=== PATIENT | female | born 1970 | race African-American/Black ===

== ENCOUNTER 2019-04-02 06:57 | Inpatient (IN) | payer MEDICAID ==
[~2019-04-02] VITALS: Ht 172.7 cm; Wt 94.3 kg
[~2019-04-02 06:57] MED LIST: UNKNOWN MEDS
[2019-04-02] MEDS ORDERED: METHYLPREDNISOLONE SOD SUCC 125 MG/2 ML VIAL IV ONE (07:15)
[2019-04-02] MEDS ORDERED: HYDRALAZINE 20MG/ML VIAL IV ONE (07:15)
[2019-04-02] MEDS ORDERED: DIPHENHYDRAMINE 50MG/ML VIAL IV ONE (07:15)
[2019-04-02] MEDS ORDERED: FAMOTIDINE 20MG/2ML VIAL IV ONE (07:15)
[2019-04-02] MEDS ORDERED: NICARDIPINE 40MG/200ML PREMIX 200 ML IV STA (07:56)
[2019-04-02 08:06] LABS: CHLORIDE 94 mEq/L (98-107)
[2019-04-02 08:08] LABS: HEMATOCRIT. 33.7 % (36.0-48.0); HEMOGLOBIN. 11.2 g/dL (12.0-16.0); INR 1.1; MEAN CORPUSCULAR HEMOGLOBIN 29.5 pg (28.0-32.0); MEAN CORPUSCULAR VOLUME 88.8 fL (81.0-99.0); PLATELET 100 x1000/uL (130-400); PROTHROMBIN TIME 10.9 sec (9.6-11.0); RED BLOOD CELL COUNT 3.79 mill/uL (4.2-5.4)
[2019-04-02 09:22] LABS: PLATELET ESTIMATE DECREASED
[2019-04-02] MEDS ORDERED: SODIUM CHLORIDE 0.9% 1,000 ML IV SCH (09:44)
[2019-04-02] MEDS ORDERED: PIPERACILLIN/TAZ 3.375G PREMIX 50 ML IV SCH (09:45)
[2019-04-02] MEDS ORDERED: DIPHENHYDRAMINE 50MG/ML VIAL IV PRN (09:45)
[2019-04-02] MEDS ORDERED: ACETAMINOPHEN 325MG TABLET PO PRN (09:45)
[2019-04-02] MEDS ORDERED: MAGNESIUM/ALUMINUM HYDROXIDE/SIMETHICONE 30ML UDC PO PRN (09:45)
[2019-04-02] MEDS ORDERED: DOCUSATE SODIUM 100MG CAPSULE PO PRN (09:45)
[2019-04-02] MEDS ORDERED: MORPHINE SULFATE 4 MG/ML CPJ (NOT FOR IM USE) IV PRN (09:45)
[2019-04-02] MEDS ORDERED: GUAIFENESIN 200MG/10ML SUGAR FREE UDC PO PRN (09:45)
[2019-04-02] MEDS ORDERED: ONDANSETRON HCL 4MG/2ML INJ IV PRN (09:45)
[2019-04-02] MEDS ORDERED: IPRATROPIUM/ALBUTEROL 0.5-3(2.5)MG/3ML NEB HHN PRN (09:45)
[2019-04-02] MEDS ORDERED: DIPHENHYDRAMINE 50MG/ML VIAL IV SCH (10:00)
[2019-04-02 10:25] LABS: PHOSPHORUS 4.6 mg/dL (2.5-4.9)
[2019-04-02 14:00] VITALS: BP 160/69
[2019-04-02] MEDS ORDERED: FAMOTIDINE 20MG/2ML VIAL IV SCH (14:00)
[2019-04-02] MEDS ORDERED: APIX5TAB MT (14:48)
[2019-04-02] MEDS ORDERED: CINA90TA MT (14:48)
[2019-04-02] MEDS ORDERED: INSU100I28 SQ (14:48)
[2019-04-02] MEDS ORDERED: SUCR500T MT (14:48)
[2019-04-02] MEDS ORDERED: METO25TA6 MT (14:56)
[2019-04-02] MEDS ORDERED: PHEN50TA2 MT (14:56)
[2019-04-02] MEDS ORDERED: BUSP15TA3 MT (14:56)
[2019-04-02] MEDS ORDERED: PRAV40TA58 MT (14:56)
[2019-04-02] MEDS ORDERED: NIFE20CA MT (14:56)
[2019-04-02] MEDS ORDERED: TEMA30CA MT (14:56)
[2019-04-02] MEDS ORDERED: CLON0.2T MT (14:56)
[2019-04-02] MEDS ORDERED: ABIL5 MT (14:56)
[2019-04-02] MEDS ORDERED: LOSA50TA41 MT (14:56)
[2019-04-02] MEDS ORDERED: FOLI-43 MT (14:56)
[2019-04-02] MEDS: PIPERACILLIN/TAZOBACTAM 2.25 G in DEXTROSE 5% WATER 50 ML IV SCH (16:00)
[2019-04-02] MEDS ORDERED: VANCOMYCIN 1,250 MG in DEXT 5% WATER 250 ML IV SCH (16:00)
[2019-04-02 16:03] VITALS: BP 133/59
[2019-04-02] MEDS: METHYLPREDNISOLONE SOD SUCC 125 MG/2 ML VIAL IV SCH ×2 (17:00→23:12)
[2019-04-02] MEDS: DIPHENHYDRAMINE 50MG/ML VIAL IV SCH ×2 (17:01→23:12)
[2019-04-02] MEDS ORDERED: MORPHINE SULFATE 2 MG/ML CPJ (NOT FOR IM USE) IV PRN (17:34)
[2019-04-02] MEDS ORDERED: DEXTROSE 50% WATER 50ML SYRINGE IV PRN (18:30)
[2019-04-02 20:00] VITALS: BP 99/58
[2019-04-02] MEDS: METOPROLOL TARTRATE 50MG TABLET PO SCH (21:00)
[2019-04-02] MEDS: NIFEDIPINE XL 30MG TAB PO SCH (21:00)
[2019-04-02] MEDS: BLOOD SUGAR DIAGNOSTIC STRIP TEST SCH (21:36)
[2019-04-02] MEDS: INSULIN LISPRO 100 UNITS/ML SUBCUT SCH (21:36)
[2019-04-02] MEDS ORDERED: INSULIN GLARGINE UD 100 UNITS/ML SYR SUBCUT SCH (22:00)
[2019-04-03] VITALS: BP 135/52
[2019-04-03] MEDS: PIPERACILLIN/TAZOBACTAM 2.25 G in DEXTROSE 5% WATER 50 ML IV SCH ×3 (00:48→15:51)
[2019-04-03] MEDS: DIPHENHYDRAMINE 50MG/ML VIAL IV SCH ×4 (02:29→20:40)
[2019-04-03 04:00] VITALS: BP 150/57
[2019-04-03] MEDS: METHYLPREDNISOLONE SOD SUCC 125 MG/2 ML VIAL IV SCH (05:05)
[2019-04-03 05:58] LABS: BASOPHILS % 0.7 % (0.0-2.0); EOSINOPHILS % 0.1 % (0.0-5.0); HEMATOCRIT. 33.1 % (36.0-48.0); HEMOGLOBIN. 11.1 g/dL (12.0-16.0); LYMPHOCYTES % 9.4 % (20.0-50.0); MEAN CORPUSCULAR HEMOGLOBIN 29.6 pg (28.0-32.0); MEAN CORPUSCULAR VOLUME 88.7 fL (81.0-99.0); MEAN PLATELET VOLUME 8.8 fl (7.4-10.4); MONOCYTES % 5.8 % (2.0-8.0); PLATELET 120 x1000/uL (130-400); RED BLOOD CELL COUNT 3.73 mill/uL (4.2-5.4); RED CELL DISTRIBUTION WIDTH 13.2 % (11.6-14.6)
[2019-04-03 06:24] LABS: CHLORIDE 94 mEq/L (98-107)
[2019-04-03 06:32] LABS: PHOSPHORUS 6.4 mg/dL (2.5-4.9)
[2019-04-03 06:34] LABS: LDL CHOLESTEROL 77 mg/dL (5-100)
[2019-04-03 06:36] LABS: HDL CHOLESTEROL 99 mg/dL (40-59)
[2019-04-03] MEDS ORDERED: LIDOCAINE HCL 1% 20ML VIAL (Pyxis) INJ ONE (07:10)
[2019-04-03] MEDS ORDERED: SODIUM BICARBONATE 4% (2.4MEQ) 5ML VIAL IV ONE (07:10)
[2019-04-03] MEDS: INSULIN LISPRO 100 UNITS/ML SUBCUT SCH ×4 (07:52→20:42)
[2019-04-03] MEDS: BLOOD SUGAR DIAGNOSTIC STRIP TEST SCH ×4 (07:52→20:42)
[2019-04-03 10:00] VITALS: BP 222/91
[2019-04-03] MEDS ORDERED: VANCOMYCIN 1,250 MG in DEXT 5% WATER 250 ML IV SCH (10:00)
[2019-04-03] MEDS: FAMOTIDINE 20MG/2ML VIAL IV SCH (10:33)
[2019-04-03] MEDS: NIFEDIPINE XL 30MG TAB PO SCH ×2 (10:33→20:40)
[2019-04-03] MEDS: METOPROLOL TARTRATE 50MG TABLET PO SCH ×2 (10:33→20:40)
[2019-04-03 12:00] VITALS: BP 222/91
[2019-04-03] MEDS ORDERED: HEPARIN SODIUM 1,000 UNIT/1ML VIAL IV SCH (13:30)
[2019-04-03] MEDS: CLONIDINE 0.1MG TABLET PO PRN (15:45)
[2019-04-03] MEDS: LANTHANUM CARBONATE 500MG CHEW TABLET PO SCH ×2 (15:46→18:21)
[2019-04-03 16:00] VITALS: BP 151/68
[2019-04-03] MEDS: CINACALCET HCL 60MG TABLET PO SCH (18:21)
[2019-04-03 20:00] VITALS: BP 149/61
[2019-04-03 20:26] LABS: HCG SCREEN NEGATIVE
[2019-04-03] MEDS: MINOXIDIL 2.5MG TABLET PO SCH (20:41)
[2019-04-03] MEDS ORDERED: VANCOMYCIN 1 G PREMIX 200 ML IV SCH (21:00)
[2019-04-03] MEDS ORDERED: INSULIN GLARGINE UD 100 UNITS/ML SYR SUBCUT SCH (22:00)
[2019-04-04] VITALS (8 sets, daily range): BP systolic 136–165; BP diastolic 40–83
[2019-04-04] MEDS: PIPERACILLIN/TAZOBACTAM 2.25 G in DEXTROSE 5% WATER 50 ML IV SCH ×3 (00:52→16:46)
[2019-04-04] MEDS: DIPHENHYDRAMINE 50MG/ML VIAL IV SCH ×4 (00:53→21:09)
[2019-04-04] MEDS: BLOOD SUGAR DIAGNOSTIC STRIP TEST SCH ×4 (05:46→21:10)
[2019-04-04] MEDS: CLONIDINE 0.1MG TABLET PO PRN (05:53)
[2019-04-04 06:07] LABS: BASOPHILS % 1.1 % (0.0-2.0); EOSINOPHILS % 3.5 % (0.0-5.0); HEMATOCRIT. 31.2 % (36.0-48.0); HEMOGLOBIN. 10.4 g/dL (12.0-16.0); LYMPHOCYTES % 26.3 % (20.0-50.0); MEAN CORPUSCULAR HEMOGLOBIN 29.7 pg (28.0-32.0); MEAN CORPUSCULAR VOLUME 88.9 fL (81.0-99.0); MEAN PLATELET VOLUME 9.2 fl (7.4-10.4); MONOCYTES % 13.2 % (2.0-8.0); NEUTROPHILS % 55.9 % (40.0-76.0); PLATELET 106 x1000/uL (130-400); RED BLOOD CELL COUNT 3.51 mill/uL (4.2-5.4); RED CELL DISTRIBUTION WIDTH 13.1 % (11.6-14.6)
[2019-04-04 06:21] LABS: CHLORIDE 96 mEq/L (98-107)
[2019-04-04 06:36] LABS: TOTAL IRON BINDING CAPACITY 136 ug/dL (250-450)
[2019-04-04 06:38] LABS: PHOSPHORUS 5.8 mg/dL (2.5-4.9)
[2019-04-04] MEDS: INSULIN LISPRO 100 UNITS/ML SUBCUT SCH ×4 (08:10→21:27)
[2019-04-04] MEDS: MINOXIDIL 2.5MG TABLET PO SCH ×2 (08:30→21:09)
[2019-04-04] MEDS: LANTHANUM CARBONATE 500MG CHEW TABLET PO SCH ×3 (08:30→18:31)
[2019-04-04] MEDS: NIFEDIPINE XL 30MG TAB PO SCH ×2 (08:30→21:08)
[2019-04-04] MEDS: METOPROLOL TARTRATE 50MG TABLET PO SCH ×2 (08:30→21:08)
[2019-04-04] MEDS: FAMOTIDINE 20MG/2ML VIAL IV SCH (08:30)
[2019-04-04] MEDS ORDERED: METHYLPREDNISOLONE SOD SUCC 125 MG/2 ML VIAL IV SCH (09:00)
[2019-04-04] MEDS ORDERED: IOHEXOL-350 100 ML BOTTLE ONE (11:12)
[2019-04-04] MEDS ORDERED: SUCR500T PO (12:33)
[2019-04-04 13:41] LABS: INR 1.2; PARTIAL THROMBOPLASTIN TIME 27.1 sec (23.4-31.0); PROTHROMBIN TIME 11.8 sec (9.6-11.0)
[2019-04-04] MEDS: CINACALCET HCL 60MG TABLET PO SCH (21:08)
[2019-04-04] MEDS: INSULIN GLARGINE UD 100 UNITS/ML SYR SUBCUT SCH (21:10)
[2019-04-05] VITALS: BP 153/52
[2019-04-05] MEDS: PIPERACILLIN/TAZOBACTAM 2.25 G in DEXTROSE 5% WATER 50 ML IV SCH ×3 (00:37→16:28)
[2019-04-05] MEDS: DIPHENHYDRAMINE 50MG/ML VIAL IV SCH ×4 (02:00→20:56)
[2019-04-05 04:00] VITALS: BP 148/61
[2019-04-05] MEDS: BLOOD SUGAR DIAGNOSTIC STRIP TEST SCH ×4 (06:28→21:02)
[2019-04-05 07:01] LABS: BASOPHILS % 1.8 % (0.0-2.0); EOSINOPHILS % 3.5 % (0.0-5.0); HEMATOCRIT. 32.4 % (36.0-48.0); HEMOGLOBIN. 10.9 g/dL (12.0-16.0); MEAN CORPUSCULAR HEMOGLOBIN 29.8 pg (28.0-32.0); MEAN CORPUSCULAR VOLUME 88.7 fL (81.0-99.0); MEAN PLATELET VOLUME 9.1 fl (7.4-10.4); MONOCYTES % 10.9 % (2.0-8.0); NEUTROPHILS % 61.8 % (40.0-76.0); PLATELET 133 x1000/uL (130-400); RED BLOOD CELL COUNT 3.66 mill/uL (4.2-5.4); RED CELL DISTRIBUTION WIDTH 12.7 % (11.6-14.6)
[2019-04-05 08:00] VITALS: BP 153/46
[2019-04-05] MEDS: NIFEDIPINE XL 30MG TAB PO SCH ×2 (08:10→20:56)
[2019-04-05] MEDS: MINOXIDIL 2.5MG TABLET PO SCH ×2 (08:10→20:57)
[2019-04-05] MEDS: LANTHANUM CARBONATE 500MG CHEW TABLET PO SCH ×3 (08:10→18:16)
[2019-04-05] MEDS: INSULIN LISPRO 100 UNITS/ML SUBCUT SCH ×4 (08:10→21:00)
[2019-04-05] MEDS: METOPROLOL TARTRATE 50MG TABLET PO SCH ×2 (08:10→20:57)
[2019-04-05] MEDS: FAMOTIDINE 20MG/2ML VIAL IV SCH (08:11)
[2019-04-05] MEDS ORDERED: IOHEXOL-350 100 ML BOTTLE ONE (11:12)
[2019-04-05] MEDS ORDERED: LIDOCAINE HCL 1% 20ML VIAL (Pyxis) INJ ONE (11:32)
[2019-04-05] MEDS ORDERED: SODIUM BICARBONATE 4% (2.4MEQ) 5ML VIAL IV ONE (11:33)
[2019-04-05 12:00] VITALS: BP 155/52
[2019-04-05 16:00] VITALS: BP 153/45
[2019-04-05] MEDS: CINACALCET HCL 60MG TABLET PO SCH (18:16)
[2019-04-05 20:00] VITALS: BP 176/57
[2019-04-05] MEDS: INSULIN GLARGINE UD 100 UNITS/ML SYR SUBCUT SCH (22:20)
[2019-04-06] VITALS (7 sets, daily range): BP systolic 119–186; BP diastolic 38–83
[2019-04-06] MEDS: PIPERACILLIN/TAZOBACTAM 2.25 G in DEXTROSE 5% WATER 50 ML IV SCH ×3 (01:04→15:35)
[2019-04-06] MEDS: DIPHENHYDRAMINE 50MG/ML VIAL IV SCH ×4 (01:07→20:53)
[2019-04-06] MEDS: CLONIDINE 0.1MG TABLET PO PRN ×2 (01:33→18:22)
[2019-04-06 04:12] LABS: HIV SCREEN 4G Non Reactive (Non Reactive)
[2019-04-06 06:45] LABS: BASOPHILS % 1.3 % (0.0-2.0); EOSINOPHILS % 7.7 % (0.0-5.0); HEMATOCRIT. 30.5 % (36.0-48.0); LYMPHOCYTES % 18.2 % (20.0-50.0); MEAN CORPUSCULAR HEMOGLOBIN 29.1 pg (28.0-32.0); MEAN PLATELET VOLUME 8.7 fl (7.4-10.4); MONOCYTES % 14.9 % (2.0-8.0); NEUTROPHILS % 57.9 % (40.0-76.0); PLATELET 145 x1000/uL (130-400); RED BLOOD CELL COUNT 3.43 mill/uL (4.2-5.4)
[2019-04-06] MEDS: BLOOD SUGAR DIAGNOSTIC STRIP TEST SCH ×4 (07:08→21:00)
[2019-04-06 07:52] LABS: PHOSPHORUS 8.7 mg/dL (2.5-4.9)
[2019-04-06] MEDS: INSULIN LISPRO 100 UNITS/ML SUBCUT SCH ×4 (08:10→22:34)
[2019-04-06] MEDS: METOPROLOL TARTRATE 50MG TABLET PO SCH ×3 (08:45→22:27)
[2019-04-06] MEDS: MINOXIDIL 2.5MG TABLET PO SCH ×2 (08:46→22:28)
[2019-04-06] MEDS: NIFEDIPINE XL 30MG TAB PO SCH ×2 (08:47→22:27)
[2019-04-06] MEDS: LANTHANUM CARBONATE 500MG CHEW TABLET PO SCH ×3 (08:48→18:08)
[2019-04-06] MEDS: FAMOTIDINE 20MG/2ML VIAL IV SCH (12:57)
[2019-04-06] MEDS: CINACALCET HCL 60MG TABLET PO SCH (18:10)
[2019-04-06] MEDS ORDERED: IOHEXOL-350 100 ML BOTTLE ONE (19:41)
[2019-04-06] MEDS: INSULIN GLARGINE UD 100 UNITS/ML SYR SUBCUT SCH (22:36)
[2019-04-07] VITALS: BP 136/39
[2019-04-07] MEDS: PIPERACILLIN/TAZOBACTAM 2.25 G in DEXTROSE 5% WATER 50 ML IV SCH ×2 (00:11→08:32)
[2019-04-07] MEDS: DIPHENHYDRAMINE 50MG/ML VIAL IV SCH ×4 (02:00→19:51)
[2019-04-07 04:00] VITALS: BP 118/37
[2019-04-07] MEDS: INSULIN LISPRO 100 UNITS/ML SUBCUT SCH ×4 (06:54→21:00)
[2019-04-07] MEDS: BLOOD SUGAR DIAGNOSTIC STRIP TEST SCH ×4 (06:54→21:25)
[2019-04-07 08:00] VITALS: BP 149/51
[2019-04-07] MEDS: LANTHANUM CARBONATE 500MG CHEW TABLET PO SCH ×3 (08:32→18:10)
[2019-04-07] MEDS: FAMOTIDINE 20MG/2ML VIAL IV SCH (08:32)
[2019-04-07] MEDS: MINOXIDIL 2.5MG TABLET PO SCH ×2 (08:35→21:00)
[2019-04-07] MEDS: METOPROLOL TARTRATE 50MG TABLET PO SCH ×2 (08:40→21:00)
[2019-04-07] MEDS: NIFEDIPINE XL 30MG TAB PO SCH ×2 (08:40→21:00)
[2019-04-07 10:23] LABS: BASOPHILS % 1.4 % (0.0-2.0); HEMATOCRIT. 31.1 % (36.0-48.0); HEMOGLOBIN. 10.3 g/dL (12.0-16.0); LYMPHOCYTES % 18.7 % (20.0-50.0); MEAN CORPUSCULAR HEMOGLOBIN 29.7 pg (28.0-32.0); MEAN CORPUSCULAR VOLUME 89.4 fL (81.0-99.0); MEAN PLATELET VOLUME 8.3 fl (7.4-10.4); MONOCYTES % 14.5 % (2.0-8.0); NEUTROPHILS % 57.4 % (40.0-76.0); PLATELET 145 x1000/uL (130-400); RED BLOOD CELL COUNT 3.48 mill/uL (4.2-5.4)
[2019-04-07 10:36] LABS: PHOSPHORUS 7.8 mg/dL (2.5-4.9)
[2019-04-07 12:00] VITALS: BP 155/39
[2019-04-07 16:00] VITALS: BP 172/31
[2019-04-07] MEDS: CINACALCET HCL 60MG TABLET PO SCH (18:27)
[2019-04-07 20:00] VITALS: BP 133/38
[2019-04-07] MEDS: INSULIN GLARGINE UD 100 UNITS/ML SYR SUBCUT SCH (22:00)
[2019-04-08] VITALS: BP 137/34
[2019-04-08] MEDS: DIPHENHYDRAMINE 50MG/ML VIAL IV SCH ×4 (03:01→20:39)
[2019-04-08 04:00] VITALS: BP 126/41
[2019-04-08] MEDS: BLOOD SUGAR DIAGNOSTIC STRIP TEST SCH ×4 (06:36→20:40)
[2019-04-08 06:40] LABS: BASOPHILS % 2.3 % (0.0-2.0); EOSINOPHILS % 9.3 % (0.0-5.0); HEMATOCRIT. 31.4 % (36.0-48.0); HEMOGLOBIN. 10.4 g/dL (12.0-16.0); MEAN CORPUSCULAR HEMOGLOBIN 29.4 pg (28.0-32.0); MEAN PLATELET VOLUME 8.5 fl (7.4-10.4); MONOCYTES % 13.4 % (2.0-8.0); PLATELET 139 x1000/uL (130-400); RED BLOOD CELL COUNT 3.52 mill/uL (4.2-5.4); RED CELL DISTRIBUTION WIDTH 12.8 % (11.6-14.6)
[2019-04-08 06:45] LABS: PHOSPHORUS 7.1 mg/dL (2.5-4.9)
[2019-04-08 08:00] VITALS: BP 154/37
[2019-04-08] MEDS: INSULIN LISPRO 100 UNITS/ML SUBCUT SCH ×4 (08:10→20:44)
[2019-04-08] MEDS: METOPROLOL TARTRATE 50MG TABLET PO SCH ×2 (09:24→20:40)
[2019-04-08] MEDS: LANTHANUM CARBONATE 500MG CHEW TABLET PO SCH ×3 (09:24→18:04)
[2019-04-08] MEDS: MINOXIDIL 2.5MG TABLET PO SCH ×2 (09:24→20:39)
[2019-04-08] MEDS: NIFEDIPINE XL 30MG TAB PO SCH ×2 (09:25→20:40)
[2019-04-08] MEDS: FAMOTIDINE 20MG/2ML VIAL IV SCH (10:54)
[2019-04-08 11:47] VITALS: BP 186/72
[2019-04-08] MEDS: CLONIDINE 0.1MG TABLET PO PRN ×2 (11:48→17:12)
[2019-04-08 16:30] VITALS: BP 183/69
[2019-04-08] MEDS: CINACALCET HCL 60MG TABLET PO SCH (18:03)
[2019-04-08 20:00] VITALS: BP 158/59
[2019-04-08] MEDS: INSULIN GLARGINE UD 100 UNITS/ML SYR SUBCUT SCH (22:06)
[2019-04-09] VITALS: BP 133/56
[2019-04-09] MEDS: DIPHENHYDRAMINE 50MG/ML VIAL IV SCH ×4 (02:07→20:27)
[2019-04-09 04:00] VITALS: BP 142/73
[2019-04-09] MEDS: BLOOD SUGAR DIAGNOSTIC STRIP TEST SCH ×4 (07:33→20:28)
[2019-04-09 08:00] VITALS: BP 168/61
[2019-04-09] MEDS: INSULIN LISPRO 100 UNITS/ML SUBCUT SCH ×4 (08:10→20:28)
[2019-04-09] MEDS: LANTHANUM CARBONATE 500MG CHEW TABLET PO SCH ×3 (08:53→18:27)
[2019-04-09] MEDS: FAMOTIDINE 20MG/2ML VIAL IV SCH (08:53)
[2019-04-09 10:10] LABS: BASOPHILS % 1.4 % (0.0-2.0); EOSINOPHILS % 8.5 % (0.0-5.0); HEMOGLOBIN. 9.7 g/dL (12.0-16.0); LYMPHOCYTES % 16.9 % (20.0-50.0); MEAN CORPUSCULAR HEMOGLOBIN 29.5 pg (28.0-32.0); MEAN CORPUSCULAR VOLUME 88.1 fL (81.0-99.0); MEAN PLATELET VOLUME 8.7 fl (7.4-10.4); MONOCYTES % 10.7 % (2.0-8.0); NEUTROPHILS % 62.5 % (40.0-76.0); PLATELET 142 x1000/uL (130-400)
[2019-04-09 10:59] LABS: PHOSPHORUS 8.4 mg/dL (2.5-4.9)
[2019-04-09 12:00] VITALS: BP 126/55
[2019-04-09] MEDS: METOPROLOL TARTRATE 50MG TABLET PO SCH ×2 (12:31→20:35)
[2019-04-09] MEDS: NIFEDIPINE XL 30MG TAB PO SCH ×2 (12:32→20:27)
[2019-04-09] MEDS: MINOXIDIL 2.5MG TABLET PO SCH ×2 (12:33→20:27)
[2019-04-09 16:00] VITALS: BP 164/71
[2019-04-09] MEDS: CLONIDINE 0.1MG TABLET PO PRN (18:41)
[2019-04-09] MEDS: CINACALCET HCL 60MG TABLET PO SCH (19:23)
[2019-04-09 20:00] VITALS: BP 155/87
[2019-04-09] MEDS: INSULIN GLARGINE UD 100 UNITS/ML SYR SUBCUT SCH (21:41)
[2019-04-10] VITALS: BP 137/49
[2019-04-10] MEDS: DIPHENHYDRAMINE 50MG/ML VIAL IV SCH ×3 (01:56→14:00)
[2019-04-10 04:00] VITALS: BP 133/55
[2019-04-10] MEDS: BLOOD SUGAR DIAGNOSTIC STRIP TEST SCH ×2 (07:21→12:40)
[2019-04-10 07:56] LABS: HEMATOCRIT. 29.4 % (36.0-48.0); HEMOGLOBIN. 9.9 g/dL (12.0-16.0); MEAN CORPUSCULAR HEMOGLOBIN 29.8 pg (28.0-32.0); MEAN CORPUSCULAR VOLUME 88.4 fL (81.0-99.0); MEAN PLATELET VOLUME 8.4 fl (7.4-10.4); PLATELET 146 x1000/uL (130-400); RED BLOOD CELL COUNT 3.33 mill/uL (4.2-5.4); RED CELL DISTRIBUTION WIDTH 13.3 % (11.6-14.6)
[2019-04-10 08:00] VITALS: BP 126/37
[2019-04-10] MEDS: INSULIN LISPRO 100 UNITS/ML SUBCUT SCH ×2 (08:10→12:49)
[2019-04-10] MEDS: METOPROLOL TARTRATE 50MG TABLET PO SCH (08:13)
[2019-04-10] MEDS: LANTHANUM CARBONATE 500MG CHEW TABLET PO SCH ×2 (08:13→12:49)
[2019-04-10] MEDS: FAMOTIDINE 20MG/2ML VIAL IV SCH (08:13)
[2019-04-10] MEDS: NIFEDIPINE XL 30MG TAB PO SCH (08:14)
[2019-04-10] MEDS: MINOXIDIL 2.5MG TABLET PO SCH (08:14)
[2019-04-10 08:33] LABS: PHOSPHORUS 8.1 mg/dL (2.5-4.9)
[2019-04-10 12:00] VITALS: BP 161/65
[2019-04-10 12:10] VITALS: BP 155/61
[2019-04-11 06:40] LABS: PLATELET ESTIMATE NORMAL
== END 2019-04-10 14:20 | disposition home or self-care (01) | DRG 197 ==
LOC: ER 06:57 → 7WST 07:58 → EDBEDREQ 08:04 → EDBEDREQSVC 08:04 → ENRESERV 12:10
PROVIDERS: ADMIT Internal Medicine; ATTEND Internal Medicine
PROC: 5A1D70Z Performance of Urinary Filtration, Intermittent, Less than 6 Hours Per Day (ICD-10-PCS; principal; 2019-04-02)
PROC: 02HV33Z Insertion of Infusion Device into Superior Vena Cava, Percutaneous Approach (ICD-10-PCS; 2019-04-03)
PROC: B548ZZA Ultrasonography of Superior Vena Cava, Guidance (ICD-10-PCS; 2019-04-03)
PROC: 5A1D70Z Performance of Urinary Filtration, Intermittent, Less than 6 Hours Per Day (ICD-10-PCS; 2019-04-05)
PROC: 5A1D70Z Performance of Urinary Filtration, Intermittent, Less than 6 Hours Per Day (ICD-10-PCS; 2019-04-07)
PROC: 5A1D70Z Performance of Urinary Filtration, Intermittent, Less than 6 Hours Per Day (ICD-10-PCS; 2019-04-08)
DX: I87.1 Compression of vein (principal); D61.818 Other pancytopenia; E11.22 Type 2 diabetes mellitus with diabetic chronic kidney disease; E11.51 Type 2 diabetes mellitus with diabetic peripheral angiopathy without gangrene; I12.0 Hypertensive chronic kidney disease with stage 5 chronic kidney disease or end stage renal disease; H70.93 Unspecified mastoiditis, bilateral; I82.629 Acute embolism and thrombosis of deep veins of unspecified upper extremity; H66.93 Otitis media, unspecified, bilateral; N18.6 End stage renal disease; I16.9 Hypertensive crisis, unspecified; E83.41 Hypermagnesemia; Z99.2 Dependence on renal dialysis; E66.9 Obesity, unspecified; J98.2 Interstitial emphysema; E03.9 Hypothyroidism, unspecified; I65.22 Occlusion and stenosis of left carotid artery; J35.1 Hypertrophy of tonsils; N25.81 Secondary hyperparathyroidism of renal origin; I82.211 Chronic embolism and thrombosis of superior vena cava; E04.1 Nontoxic single thyroid nodule; I70.8 Atherosclerosis of other arteries; Z82.49 Family history of ischemic heart disease and other diseases of the circulatory system; Z83.3 Family history of diabetes mellitus; Z86.718 Personal history of other venous thrombosis and embolism; Z88.5 Allergy status to narcotic agent; Z79.899 Other long term (current) drug therapy; Z68.31 Body mass index [BMI] 31.0-31.9, adult
CPT/HCPCS: 36415; 36573; 70490; 70498; 71045; 71275; 76536; 80048; 80061; 80202; 82728; 82962; 83540; 83550; 83735; 84100; 84443; 84484; 84703; 87389; 92610; 93005; 93970; 96374; 99291; C1725; C1769; J0360; J1200; J1642; J1815; J2270; J2543; J2930; J3370; J3490; J7040; J7060; L8514; Q9967